=== PATIENT | female | born 1990 | race Caucasian/White ===

== ENCOUNTER → 2020-03-05 | Outpatient (BNVA) | payer OTHER, SELFPAY | PROVIDERS: Visit Provider Physician Assistant Medical | DX: S06.9X0A Unspecified intracranial injury without loss of consciousness, initial encounter (principal); S49.91XA Unspecified injury of right shoulder and upper arm, initial encounter; W22.8XXA Striking against or struck by other objects, initial encounter | CPT/HCPCS: 70450; 73060; 73080; 73110; 99203 ==

== ENCOUNTER → 2020-03-08 14:48 | Outpatient (BNVA) | payer OTHER, SELFPAY | PROVIDERS: Visit Provider Physician Assistant | DX: S09.90XA Unspecified injury of head, initial encounter (principal); S49.91XA Unspecified injury of right shoulder and upper arm, initial encounter; W22.8XXA Striking against or struck by other objects, initial encounter | CPT/HCPCS: 99213 ==